=== PATIENT | female | born 1995 | race African-American/Black ===

== ENCOUNTER → 2025-07-29 | Emergency (ER) | payer BC, OTHER ==
[~2025-07-29] VITALS: Ht 165.1 cm; Wt 60.0 kg
[2025-07-29 09:30] VITALS: BP 134/72; PULSE 91; RESP 18; TEMP 98.105288; O2SAT 99
== END | disposition home or self-care (01) ==
LOC: EMS 09:07
DX: S30.0XXA Contusion of lower back and pelvis, initial encounter (principal); F10.129 Alcohol abuse with intoxication, unspecified; Y04.2XXA Assault by strike against or bumped into by another person, initial encounter; Y93.89 Activity, other specified; Y92.89 Other specified places as the place of occurrence of the external cause; Y99.8 Other external cause status; Y90.9 Presence of alcohol in blood, level not specified
CPT/HCPCS: 99283; Z7502

== ENCOUNTER 2025-07-31 20:25 | Inpatient (IN) | payer OTHER ==
[~2025-07-31] VITALS: Ht 165.1 cm; Wt 60.5 kg
[2025-07-31 21:18] LABS: PLATELET COUNT (AUTO) 131 K/uL (150-450); RED BLOOD CELL COUNT(AUTO) 3.21 MIL/uL (4.00-5.20); RED CELL DISTRIBUTION WIDTH 16.5 % (11.5-14.5); WHITE BLOOD COUNT (AUTO) 4.9 K/uL (4.5-11.0)
[2025-07-31 21:22] LABS: PH,URINE DRUG SCREEN 5.5 (5.0-8.0)
[2025-07-31 21:28] LABS: AMPHET/METH SCREEN,URINE NEGATIVE (NEGATIVE); BARBITURATE SCREEN, URINE NEGATIVE (NEGATIVE); CANNABINOID SCREEN,URINE NEGATIVE (NEGATIVE); COCAINE SCREEN,URINE NEGATIVE (NEGATIVE); METHADONE SCREEN, URINE NEGATIVE (NEGATIVE)
[2025-07-31 21:30] LABS: ALCOHOL, URINE DRUG SCREEN POSITIVE (NEGATIVE)
[2025-07-31 21:34] LABS: CALCIUM, TOTAL 8.7 mg/dL (8.8-10.5); CREATININE 0.44 mg/dL (0.60-1.30); GLOMERULAR FILTR. RATE CALC > 60 mL/min (>60); GLUCOSE,RANDOM 117 mg/dL (70-110); SODIUM SERUM 139 mmol/L (136-145); UREA NITROGEN, BLOOD 14 mg/dL (7-18)
[2025-07-31 21:58] LABS: RBC MORPHOLOGY COMMENT ABNORMAL RBC MORPH
[2025-07-31] MEDS: SODIUM CHLORIDE 0.9% 1,000 ML IV ONE (22:26)
[2025-07-31] MEDS: KETOROLAC TROMETHAMINE 30 MG/ML VIAL IVP ONE (22:28)
[2025-07-31] MEDS: LIDOCAINE 5% TRANSDERMAL PATCH TD ONE (22:29)
[2025-07-31] MEDS ORDERED: POTASSIUM CHL 10 MEQ/WATER 50 ML IV SCH (22:45)
[2025-07-31] MEDS: POTASSIUM CHLORIDE 20 MEQ ER TABLET PO ONE (23:16)
[2025-08-01] MEDS ORDERED: MORPHINE SULFATE 4 MG/ML VIAL IVP PRN (01:15)
[2025-08-01] MEDS ORDERED: HYDROCODONE/ACETAMINOPHEN 5-325 MG TABLET PO PRN (01:15)
[2025-08-01] MEDS ORDERED: BISACODYL 10 MG RECTAL RECTAL SUPPOSITORY PR PRN (01:15)
[2025-08-01] MEDS ORDERED: ZOLPIDEM TARTRATE 5 MG TABLET PO PRN (01:15)
[2025-08-01] MEDS ORDERED: MAGNESIUM HYDROXIDE SUSPENSION 30 ML UDCUP PO PRN (01:15)
[2025-08-01] MEDS ORDERED: ONDANSETRON HCL 4 MG/2 ML VIAL IVP PRN (01:15)
[2025-08-01] MEDS ORDERED: POTASSIUM CHL 10 MEQ/WATER 50 ML IV PRN (01:15)
[2025-08-01] MEDS ORDERED: POTASSIUM CHLORIDE 20 MEQ ER TABLET PO PRN (01:15)
[2025-08-01] MEDS: MAGNESIUM SULFATE 2 GM, MVI, ADULT NO.1 WITH VIT K 10 ML, THIAMINE 100 MG, FOLIC ACID 1... IV ONE (01:36)
[2025-08-01 03:30] VITALS: BP 142/103; PULSE 88; RESP 20; TEMP 98.1; O2SAT 100
[2025-08-01 05:25] VITALS: BP 138/92; PULSE 85; RESP 18; TEMP 98.1; O2SAT 100
[2025-08-01 06:11] LABS: PLATELET COUNT (AUTO) 118 K/uL (150-450); RED BLOOD CELL COUNT(AUTO) 2.99 MIL/uL (4.00-5.20); RED CELL DISTRIBUTION WIDTH 16.4 % (11.5-14.5); WHITE BLOOD COUNT (AUTO) 3.9 K/uL (4.5-11.0)
[2025-08-01 06:27] LABS: CALCIUM, TOTAL 8.1 mg/dL (8.8-10.5); CREATININE 0.56 mg/dL (0.60-1.30); GLOMERULAR FILTR. RATE CALC > 60 mL/min (>60); GLUCOSE,RANDOM 81 mg/dL (70-110); SODIUM SERUM 141 mmol/L (136-145); UREA NITROGEN, BLOOD 13 mg/dL (7-18)
[2025-08-01 08:00] VITALS: BP 151/107; PULSE 84; RESP 18; TEMP 98.2; O2SAT 99
[2025-08-01] MEDS: PANTOPRAZOLE SODIUM 40 MG DR TABLET PO SCH (08:39)
[2025-08-01] MEDS: HEPARIN SODIUM,PORCINE 5,000 UNITS/ML VIAL SQ SCH (08:39)
[2025-08-01] MEDS: DOCUSATE SODIUM 100 MG CAPSULE PO SCH (08:40)
[2025-08-01] MEDS: LORazepam 2 MG/ML VIAL IVP PRN (14:03)
[2025-08-01 16:24] VITALS: BP 148/104; PULSE 113; RESP 17; TEMP 99.1; O2SAT 96
[2025-08-01 20:04] VITALS: BP 152/105; PULSE 103; RESP 18; TEMP 98.4; O2SAT 99
[2025-08-01 21:04] VITALS: BP 164/106; PULSE 99; RESP 17; O2SAT 99
[2025-08-01] MEDS: ACETAMINOPHEN 325 MG TABLET PO PRN (21:11)
[2025-08-02 00:17] VITALS: BP 145/98; PULSE 98; RESP 18; TEMP 98.8; O2SAT 99
[2025-08-02 05:00] VITALS: BP 143/93; PULSE 90; RESP 18; TEMP 98.1; O2SAT 99
[2025-08-02 08:20] VITALS: BP 143/102; PULSE 92; RESP 18; TEMP 98.1; O2SAT 99
[2025-08-02 16:22] VITALS: BP 150/101; PULSE 106; RESP 18; TEMP 99; O2SAT 99
[2025-08-02 20:07] VITALS: BP 145/108; PULSE 115; RESP 18; TEMP 98.8; O2SAT 98
[2025-08-02] MEDS: LORazepam 2 MG/ML VIAL IVP ONE (20:11)
[2025-08-03 00:14] VITALS: BP 143/98; PULSE 96; RESP 18; TEMP 98.1; O2SAT 98
[2025-08-03 05:08] VITALS: BP 145/99; PULSE 108; RESP 18; TEMP 98.1; O2SAT 98
[2025-08-03 08:38] VITALS: BP 143/97; PULSE 117; RESP 20; TEMP 98.4; O2SAT 98
== END 2025-08-03 10:30 | disposition left against medical advice (07) | DRG 425 ==
LOC: EMS 20:48 → EDH 08-01 01:03 → 5N 08-01 03:20 → 6S 08-01 08:04
PROVIDERS: ADMIT Internal Medicine; ATTEND Internal Medicine
DX: E87.6 Hypokalemia (principal); D69.6 Thrombocytopenia, unspecified; D64.9 Anemia, unspecified; R73.9 Hyperglycemia, unspecified; Y90.8 Blood alcohol level of 240 mg/100 ml or more; R07.81 Pleurodynia; Z53.29 Procedure and treatment not carried out because of patient's decision for other reasons; F10.929 Alcohol use, unspecified with intoxication, unspecified
CPT/HCPCS: 80048; 80307; 85025; 96361; 96374; 99285; G0480; J1644; J1885; J2060; J3411; J3475; J3490; J7030; 36415-L1; 36415-TC